=== PATIENT | female | born 2000 | race African-American/Black ===

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

== ENCOUNTER 2021-04-10 10:42 | Emergency (ER) | payer OTHER ==
[~2021-04-10] VITALS: Ht 162.6 cm; Wt 46.3 kg
[~2021-04-10 10:42] MED LIST: IBUPROFEN 600600 M1 PO; TIZANIDINE HCL4 MG PO
[2021-04-10 10:45] VITALS: BP 124/88
== END 2021-04-10 12:17 | disposition home or self-care (01) ==
LOC: ER 10:42
DX: S99.921A Unspecified injury of right foot, initial encounter (principal); Z79.1 Long term (current) use of non-steroidal anti-inflammatories (NSAID); Z79.899 Other long term (current) drug therapy; X50.1XXA Overexertion from prolonged static or awkward postures, initial encounter; Y93.89 Activity, other specified; Y92.89 Other specified places as the place of occurrence of the external cause; Y99.8 Other external cause status